=== PATIENT | male | born 1950 | race Caucasian/White ===

== ENCOUNTER 2023-08-26 09:30 | Day surgery (SDC) | payer MEDICARE ==
[2023-08-23 12:29] LABS: BASOPHILS # (AUTO) 0.06 K/uL (0.00-0.20); BASOPHILS % (AUTO) 0.8 % (0.0-5.0); EOSINOPHILS # (AUTO) 0.21 K/uL (0.00-0.70); EOSINOPHILS % (AUTO) 2.6 % (0.0-8.0); HEMATOCRIT 32.1 % (42-54); IMMATURE GRANULOCYTE ABSOLUTE 0.04 K/uL (0-1); LYMPHOCYTES # (AUTO) 2.1 K/uL (1.0-4.8); LYMPHOCYTES % (AUTO) 26.8 % (21.0-51.0); MEAN CORPUSCULAR HEMOGLOBIN 30.4 pg (27.0-33.0); MEAN CORPUSCULAR HGB CONC 33.3 g/dL (32.0-36.0); MEAN CORPUSCULAR VOLUME 91.2 fL (79-99); MONOCYTES # (AUTO) 0.7 K/uL (0.1-1.0); MONOCYTES % (AUTO) 8.9 % (3.0-13.0); NEUTROPHILS # (AUTO) 4.8 K/uL (1.8-7.7); NEUTROPHILS % (AUTO) 60.4 % (40.0-77.0); PLATELET COUNT (AUTO) 385 K/uL (130-400); RED BLOOD CELL COUNT(AUTO) 3.52 MIL/uL (4.50-6.20); RED CELL DISTRIBUTION WIDTH 12.2 % (11.0-15.5)
[2023-08-23 12:41] LABS: INR 0.94 (0.85-1.15); PROTHROMBIN TIME 10.9 SEC (9.6-11.6)
[2023-08-23 12:43] LABS: PARTIAL THROMBOPLASTIN TIME 27.7 SEC (26.3-35.5)
[2023-08-23 12:45] LABS: CREATININE 1.5 mg/dL (0.5-1.5)
[2023-08-23 12:48] LABS: POTASSIUM 4.7 mmol/L (3.5-5.1)
[2023-08-23 12:59] VITALS: BP 163/68; PULSE 62; RESP 18
[2023-08-23 13:03] LABS: ADD UA MICROSCOPIC YES; APPEARANCE,URINE CLOUDY (CLEAR); BILIRUBIN,URINE NEGATIVE (NEGATIVE); COLOR,URINE LIGHT-YELLOW (YELLOW); GLUCOSE, URINE (UA) NEGATIVE (NEGATIVE); KETONES,URINE NEGATIVE (NEGATIVE); LEUKOCYTE ESTERASE ,URINE 500 Leu/uL (NEGATIVE); NITRATE,URINE NEGATIVE (NEGATIVE); OCCULT BLOOD,URINE NEGATIVE (NEGATIVE); PH,URINE 6.5 (5.0-8.0); PROTEIN,URINE 50 mg/dL (NEGATIVE); UROBILINOGEN,URINE 0.2 mg/dL (0.2-1.0)
[2023-08-23 13:12] LABS: BACTERIA,URINE FEW /HPF (None Seen); MUCUS,URINE RARE LPF (None Seen); SQUAMOUS EPITHELIAL CELL,UR RARE /HPF (0-2); UNCLASSIFIED CRYSTAL 4 /HPF (None Seen); WBC,URINE 51-100 /HPF (0-1); YEAST,URINE BUDDING FEW /HPF (None Seen)
[2023-08-26] VITALS (26 sets, daily range): BP systolic 94–183; BP diastolic 36–79; PULSE 49–65; RESP 12–21
[~2023-08-26] VITALS: Ht 167.6 cm; Wt 81.0 kg
[~2023-08-26 09:30] MED LIST: AMLO-257 PO; ATOR40TA71 PO; FURO20TA4 PO; HYDR25TA67 PO; INSU100I68 SQ; METF-910 PO; PANT40TA54 PO; POTA-79 PO; VALS320T16 PO
[2023-08-26] MEDS ORDERED: 0.9%NACL 1000ML 1,000 ML IV ONE (09:58)
[2023-08-26] MEDS ORDERED: GENTAMICIN 80 MG/NS 100 ML PB 100 ML IV ONE (09:58)
[2023-08-26] MEDS: CEFTRIAXONE 1G VIAL ONE (10:48)
[2023-08-26] MEDS ORDERED: PROPOFOL 10 MG/ML 20ML VIAL IV ONE (15:02)
[2023-08-26] MEDS ORDERED: FENTANYL CITRATE PF 50 MCG/1 ML 2ML VIAL ONE ×2 (15:03→18:25)
[2023-08-26] MEDS ORDERED: MIDAZOLAM HCL 1 MG/ML 2ML VIAL ONE (15:03)
[2023-08-26] MEDS: GENTAMICIN SULFATE 80 MG/2 ML VIAL IV ONE (16:30)
[2023-08-26] MEDS ORDERED: ROCURONIUM BROMIDE 10MG/1ML 5ML VL ONE (16:40)
[2023-08-26] MEDS: CEFTRIAXONE 1G VIAL IVPB ONE (16:55)
[2023-08-26] MEDS ORDERED: ONDANSETRON 4MG INJ ONE (17:42)
[2023-08-26] MEDS ORDERED: GLYCOPYRROLATE 0.2 MG/ML 5 ML VIAL ONE ×2 (18:24→18:47)
[2023-08-26] MEDS ORDERED: NEOSTIGMINE METHYLSULFATE 1MG/ML IV ONE (18:25)
[2023-08-26] MEDS: DEXTROSE 50%-WATER 50 ML DISP.SYRIN IV ONE (20:10)
[2023-08-26] MEDS: CITRIC ACID/SODIUM CITRATE 30 ML UDCUP ONE (20:11)
[2023-08-26] MEDS: NITROGLYCERIN 0.4 MG SL TAB SL ONE (20:12)
[2023-08-26] MEDS: FAMOTIDINE 20MG VIAL IV ONE (20:12)
[2023-08-26] MEDS ORDERED: MAG/ALUM/SIMETH 30 ML UDCUP PO ONE (20:30)
[2023-08-26] MEDS ORDERED: LIDO 2% VISC 30ML+MAG/AL/SIMETH 30ML+DICYCLOMINE 20MG 10ML PO ONE ×2 (20:30)
[2023-08-26] MEDS ORDERED: NITROGLYCERIN 0.4 MG SL TAB SL PRN (20:30)
[2023-08-26] MEDS ORDERED: BACITRACIN 1 EACH PACKET TP ONE (20:59)
[2023-09-06 10:06] LABS: STONE COLOR SEE SEPARATE REPORT; STONE COMPOSITION SEE SEPARATE REPORT; STONE SIZE SEE SEPARATE REPORT; STONE WEIGHT SEE SEPARATE REPORT
== END 2023-08-26 21:14 | disposition home or self-care (01) ==
LOC: DAH 09:30
PROVIDERS: ATTEND Urology
DX: N40.1 Benign prostatic hyperplasia with lower urinary tract symptoms (principal); N21.0 Calculus in bladder; N13.30 Unspecified hydronephrosis; N13.8 Other obstructive and reflux uropathy; R33.8 Other retention of urine; I10 Essential (primary) hypertension; E11.9 Type 2 diabetes mellitus without complications; K21.9 Gastro-esophageal reflux disease without esophagitis; Z83.3 Family history of diabetes mellitus; Z79.4 Long term (current) use of insulin; Z72.89 Other problems related to lifestyle; Z79.84 Long term (current) use of oral hypoglycemic drugs; Z79.899 Other long term (current) drug therapy
CPT/HCPCS: 80048; 85025; 85610; 85730; 87077; 87088; 87186; 81001; 36415; 71045; 93005 ×2; 52648; 52318; 82948 ×3; 82360; A6260; A4663; J7030 ×2; A4354; J3490 ×4; J3010 ×2; J7070; J1580 ×2; J0696 ×2; J2250; J2704; J2405; J2710; A4315; A4358; A4930; A4215; A4223; A4222; A4221; A4600

== ENCOUNTER 2025-05-12 09:06 | Emergency (ER) | payer OTHER ==
[~2025-05-12] VITALS: Ht 172.7 cm; Wt 81.6 kg
[~2025-05-12 09:06] MED LIST changes: -INSU100I68 SQ; +INSU100I94 SQ; +POTA-364 PO; -POTA-79 PO
[2025-05-12 09:07] VITALS: TEMP 98
--- NOTE | 2025-05-12 09:34 | ERN ---
General Chief Complaint: Painful Urination Stated Complaint: BURNING WHEN URINATING Time Seen by MD: 09:12 History of Present Illness Initial Comments 75-year-old male history of hypertension, hyperlipidemia and diabetes mellitus who presents to emergency room with the complaints of dysuria. Patient states that he has had symptoms for the past one week however has been taking gwhu-zuz-[id number] medications with mild relief of symptoms. He presents today because he still has symptoms and we would like to be evaluated. No fever no cough no shortness a breath. No nausea vomiting diarrhea. No abdominal pain or chest pain. No palpitations. Allergies: Coded Allergies: No Known Drug Allergies (Unverified Allergy, Unknown, 08/05/23) Home Meds Reported Medications Amlodipine Besylate (Amlodipine Besylate) 5 Mg Tablet, 5 MG PO BID, TAB 08/05/23 Atorvastatin Calcium (Atorvastatin Calcium) 40 Mg Tablet, 40 MG PO HS, TAB 24 Pantoprazole Sodium (Pantoprazole Sodium) 40 Mg Tablet.dr, 40 MG PO BID, TAB 08/05/23 Potassium Chloride (Potassium Chloride) 20 Meq Tablet.er, 20 MEQ PO DAILY, TAB 08/05/23 Furosemide (Furosemide) 20 Mg Tablet, 20 MG PO DAILY, TAB 24 Valsartan (Valsartan) 320 Mg Tablet, 320 MG PO DAILY, TAB 24 Metformin HCl (Metformin HCl ER) 500 Mg Tab.er.24h, 1000 MG PO BID, TAB 08/05/23 Hydralazine HCl (Hydralazine HCl) 25 Mg Tablet, 25 MG PO TID, TAB 08/05/23 Insulin Glargine-Yfgn (Insulin Glargine-Yfgn) 100 Unit/Ml (3 Ml) Insuln.pen, 24 UNIT SQ HS, SYRINGE 08/05/23 Past Medical History Past Medical History: Diabetes-Type II, Heart Disease Past Surgical History: Appendectomy, Other Surgical History Other: PROSTATE, " BLADDER STONE", LEFT ARM Social History Social History: Lives with family Genitourinary: (+) dysuria Review of Systems: was completed, & the rest were negative. Physical Exam Physical Exam Dictation GENERAL APPEARANCE NAD, activity normal for age, well developed/ well nourished, no cyanosis, pallor, or diaphoresis. EYES lids/conjunctiva normal. EARS/NOSE/THROAT Mucous membranes moist, nares normal, lips/teeth normal uvula midline without oral pharyngeal erythema, exudate or swelling TMs normal bilaterally. No lymphangitis/lymphedema. HEAD/NECK normocephalic atraumatic, no facial trauma, neck is supple. RESPIRATORY respiratory effort normal, speaks in full sentences, no tripod position, no accessory muscle use. Lungs clear to auscultation without rhonchi, wheezes, rales CARDIAC Regular rate and rhythm, no edema. ABDOMINAL Soft, ND/NT. No evidence of fluid wave. No pulsatile masses on exam, rebound tenderness, Portillo sign or pain over Mcburney's point. MUSCLES/EXTREMITIES No abnormal range of motion, no swelling. SKIN Warm, pink and dry. No rashes, dermatoses, petechiae or lesions. NEUROLOGICAL Speech is clear and appropriate. Normal level of consciousness. Gait and coordination are normal. 5/5 strength in all extremities. PSYCH Normal mood and affect. Judgement/competence is appropriate Results Laboratory and Microbiology Lab and Micro Result Laboratory Tests Test 05/12/25 09:37 Urine Color DARK-ORANGE (YELLOW) Urine Appearance TURBID (CLEAR) Urine pH 6.0 (5.0-8.0) Urine Specific Rayne 1.007 (1.001-1.031) Urine Protein 50 mg/dL (NEGATIVE) H Urine Glucose (UA) NEGATIVE mg/dL (NEGATIVE) Urine Ketones NEGATIVE mg/dL (NEGATIVE) Urine Occult Blood SMALL (NEGATIVE) H Urine Nitrate NEGATIVE (NEGATIVE) Urine Bilirubin NEGATIVE mg/dL (NEGATIVE) Urine Urobilinogen 0.2 mg/dL (0.2-1.0) Urine Leukocyte Esterase 500 Ant/uL (NEGATIVE) H Urine RBC 6-10 /HPF (0-1) H Urine WBC TNTC /HPF (0-1) H Urine WBC Clumps (Auto) MANY /HPF (0-1) Urine Bacteria RARE /HPF (None Seen) Urine Yeast RARE /HPF (None Seen) MDM 75-year-old male here for evaluation of dysuria. We will get urinary labs and reassess. Disposition pending results of UA MDM: DIFFERENTIAL DIAGNOSIS: Dysuria, hematuria, kidney stone, abdominal pain RATIONALE: TESTS CONSIDERED AND ORDERED SECONDARY TO SHARED DECISION MAKING INCLUDE: PREVIOUS OUTSIDE RECORDS REVIEWED: OLD ER VISITS. RISK OF COMPLICATION AND/OR MORBIDITY OR MORTALITY OF PATIENT MANAGEMENT: NONE MEDICATIONS-PER MEDICATION RECONCILIATION NEED FOR HOSPITALIZATION: PATIENT DOES NOT MEET CRITERIA FOR HOSPITALIZATION. NEED FOR EMERGENCY MAJOR/MINOR SURGERY: NO THERE ARE NO SOCIAL CONCERNS WITH THIS PATIENT. PRESCRIPTION DRUG MANAGEMENT PRESCRIPTIONS WILL INCLUDE SYMPTOMATIC CARE PATIENT'S PRIOR EXTERNAL MEDICAL RECORDS FROM OTHER ER VISITS WERE REVIEWED BY ME INDICATED. PRIOR TESTING AND RESULTS FROM PREVIOUS VISITS WERE REVIEWED. PRIOR TESTS WERE TAKEN INTO ACCOUNT WITH MEDICAL DECISION MAKING AND RESOURCE UTILIZATION, INDEPENDENT HISTORIAN/HISTORIANS WERE USED TO OBTAIN COMPLETE MEDICAL HISTORY. I INDEPENDENTLY INTERPRETED THE TEST THAT WERE PERFORMED, RESULTS WERE REVIEWED BY ME AND CONSIDERED FINDINGS ON RADIOLOGY IF ORDERED. MEDICAL MANAGEMENT AND EXAMINATION INTERPRETATION DISCUSSIONS WERE HAD BY ME WITH OTHER QUALIFIED HEALTHCARE PROFESSIONALS INDICATED FOR THE PATIENT'S CARE. ED Course Orders Procedure Category Date Status Time Urinalysis Profile LAB 05/12/25 Complete 09:12 Culture Urine GAY 05/12/25 In Process 09:48 Ceftriaxone 1g Vial PHA 05/12/25 Transmitted (Rocephine 1g Inj) 10:30 Vital Signs Date Time Temp Pulse Resp B/P (MAP) Pulse Ox O2 Delivery O2 Flow Rate FiO2 05/12/25 09:07 98.1 72 16 142/52 96 Room Air UA significant for a UTI. We will discharge home on Bactrim. We will also give shot of Rocephin here in the emergency room. Advised on concerning signs and symptoms for which to return to the emergency room. All questions answered at this time. Discharge home. Patient's prior external medical records from other ER visits were reviewed by me as indicated. Prior testing and results from previous visits were reviewed. Prior tests were taken into account with medical decision making and resource utilization, independent historian/historians were used to obtain complete medical history. I independently interpreted the test that were performed, results were reviewed by me and considered findings on radiology if ordered. Medical management and examination interpretation discussions were had by me with other qualified healthcare professionals as indicated for the patient's care. Labs and imaging reviewed with patient. All questions answered at this time. Patient advised to follow up with primary care physician in the next few days. Patient well-appearing, no acute distress. Vital signs stable. Will discharge at this time. DX & DISP Disposition: Discharge Departure Impression: Primary Impression: UTI (urinary tract infection) Condition: Stable Scripts Sulfamethoxazole/Trimethoprim (Bactrim Ds Tablet) 800 Mg-160 Mg Tablet 1 TAB PO BID for 10 Days, #20 TAB 0 Refills Prov: STACIE PADILLA MD 05/12/25 Referrals: SELF,REFERRAL (PCP) STACIE PADILLA MD May 12, 2025 09:34
[2025-05-12 09:45] LABS: APPEARANCE,URINE TURBID (CLEAR); GLUCOSE, URINE (UA) NEGATIVE (NEGATIVE); LEUKOCYTE ESTERASE ,URINE 500 Leu/uL (NEGATIVE); NITRATE,URINE NEGATIVE (NEGATIVE); OCCULT BLOOD,URINE SMALL (NEGATIVE)
[2025-05-12 09:48] LABS: ADD UA MICROSCOPIC YES
[2025-05-12 09:52] LABS: WBC CLUMP MANY /HPF (0-1); YEAST,URINE BUDDING RARE /HPF (None Seen)
--- NOTE | 2025-05-12 09:58 | NUR ---
PT IN ER LOBBY
[2025-05-12] MEDS ORDERED: SULF1TAB42 PO (10:08)
[2025-05-12 10:19] VITALS: BP 131/55; PULSE 68; RESP 18; O2SAT 97
== END 2025-05-12 10:24 | disposition home or self-care (01) ==
LOC: EDH 09:06
DX: N39.0 Urinary tract infection, site not specified (principal); E11.9 Type 2 diabetes mellitus without complications; E78.5 Hyperlipidemia, unspecified; Z79.84 Long term (current) use of oral hypoglycemic drugs; Z79.899 Other long term (current) drug therapy; Z90.49 Acquired absence of other specified parts of digestive tract
CPT/HCPCS: 99283; 87086 ×2; 87186; 81001; 96372; J0696